=== PATIENT | female | born 1955 | race Caucasian/White ===

== ENCOUNTER 2018-05-02 06:54 | Day surgery (SDC) | payer MEDICARE ==
[2018-04-30 16:03] LABS: BASOPHILS % (AUTO) 0.4 % (0-1); EOSINOPHILS # (AUTO) 0.3 X10'3 (0-0.9); EOSINOPHILS % (AUTO) 3.3 % (0-6); LYMPHOCYTES # (AUTO) 2.6 X10'3 (1.1-4.8); LYMPHOCYTES % (AUTO) 30.4 % (21-51); MEAN CORPUSCULAR HEMOGLOBIN 29.7 PG (27.0-31.0); MEAN CORPUSCULAR HGB CONC 33.7 % (33.0-36.5); MEAN CORPUSCULAR VOLUME 88.2 FL (78-98); MEAN PLATELET VOLUME 9.1 FL (7.4-10.4); MONOCYTES # (AUTO) 0.7 X10'3 (0-0.9); MONOCYTES % (AUTO) 8.2 % (2-12); NEUTROPHILS # (AUTO) 4.9 X10'3 (1.8-7.7); NEUTROPHILS % (AUTO) 57.7 % (42-75); PRE OP HEMATOCRIT 43.1 % (35.0-45.0); PRE OP HEMOGLOBIN 14.5 g/dL (12.0-16.0); PRE OP PLATELET COUNT 251 X10'3 (140-440); RED BLOOD COUNT 4.88 X10'6 (4.20-5.60); RED CELL DISTRIBUTION WIDTH 14.8 % (11.5-14.5)
[2018-04-30 16:11] LABS: CLARITY,URINE SLIGHTLY CLOUDY (Clear); COLOR,URINE YELLOW (Yellow); GLUCOSE, URINE NEGATIVE (Neg); KETONES,URINE TRACE mg/dl (Neg); LEUKOCYTE ESTERASE ,URINE NEGATIVE (Neg); NITRITES, URINE NEGATIVE (Neg); OCCULT BLOOD,URINE NEGATIVE (Neg); PROTEIN,URINE >=300 mg/dl (Neg)
[2018-04-30 16:14] LABS: UA COLLECTION TYPE CLN CATCH MIDSTREAM
[2018-04-30 16:22] LABS: MUCUS STRANDS MANY /LPF (Neg); SQUAMOUS EPITHELIAL CELL,UR FEW /LPF (FEW); TRANSITIONAL EPI CELLS,URINE MODERATE /HPF
[2018-04-30 16:25] LABS: YEAST FEW /HPF (NEGATIVE)
[2018-04-30 16:26] LABS: RBC,URINE NONE SEEN /HPF (0-2)
[2018-04-30 16:27] LABS: ALBUMIN 2.8 G/DL (3.4-5.0); ALBUMIN/GLOBULIN RATIO 0.7 (1.1-1.5); ALKALINE PHOSPHATASE 76 IU/L (46-116); BLOOD UREA NITROGEN 14 MG/DL (7-18); BUN/CREATININE RATIO 17.7 (6.6-38.0); CALCIUM 8.8 MG/DL (8.5-10.1); CHLORIDE 102 MMOL/L (99-107); CREATININE 0.79 MG/DL (0.40-0.90); PRE OP ALT 20 U/L (30-65); PRE OP ANION GAP 12 (8-16); PRE OP AST 23 U/L (10-37); PRE OP BILIRUB, TOTAL 0.2 MG/DL (0.0-1.0); PRE OP GLUCOSE 84 MG/DL (70-104); PRE OP POTASSIUM 3.9 MMOL/L (3.4-5.1); PRE OP SODIUM 139 MMOL/L (135-145); TOTAL PROTEIN 6.8 G/DL (6.4-8.2); eGFR 73 ML/MIN
[2018-04-30 16:27] LABS: BACTERIA,URINE NONE SEEN /HPF (Neg); CAL OXALATE CRYSTALS 2+ /HPF (NEGATIVE)
[~2018-05-02] VITALS: Ht 157.5 cm; Wt 50.6 kg
[2018-05-02] VITALS (10 sets, daily range): BP systolic 131–198; BP diastolic 49–105
[~2018-05-02 06:54] MED LIST: ALPR-623 PO; ASPI-611 PO; ATOR40TA PO; CARV25TA56 PO; CHOL10002 PO; CLOP75TA15 PO; DOCUMENT DATE & TIME OF BETA-BLOCKER PO ONE; ESCI20TA38 PO; GABA600T2 PO; GEMF600T3 PO; LEVO112T25 PO; MAGN500C16 PO; METF1000 PO; MULT-342 PO; NITR0.4T SL; NOR5T PO; NPH,100V2 SQ; OMEG1CAP PO; TRAM50TA2 PO; VITAMIN B; albuterol 2.5 MG/3 ML nebule NEB ONE; ceFOXitin 2 GM ADDvantage bag 100 ML IV ONE; famotidine 20mg tablet PO ONE; ringers solution, lacted 1,000 ML IV SCH
[2018-05-02] MEDS ORDERED: ringers solution, lacted 1,000 ML IV SCH (07:37)
[2018-05-02] MEDS ORDERED: ondansetron/PF 4mg/2ml inj IV PRN (07:40)
[2018-05-02] MEDS ORDERED: morphine 4 MG/ML inj SYRINge IV PRN ×2 (07:40)
[2018-05-02] MEDS ORDERED: fentaNYL/PF 50MCG/1 ML 2ML syringe IV PRN (07:40)
[2018-05-02] MEDS ORDERED: meperidine/PF 25mg/ml syringe IV PRN (07:40)
[2018-05-02] MEDS ORDERED: proCHLORperazine 10 MG/2 ml inj IV PRN (07:40)
[2018-05-02] MEDS ORDERED: CLOP75TA15 PO (08:54)
[2018-05-02] MEDS ORDERED: ROPIVAcaine 0.5% (5mg/ml) 30ml vial ONE (09:32)
[2018-05-02] MEDS ORDERED: ceFAZolin 1000mg inj ONE (09:32)
[2018-05-02] MEDS ORDERED: fentaNYL/PF 50MCG/1 ML 2ML syringe ONE (10:59)
[2018-05-02] MEDS ORDERED: midazolam 2 mg/2 ml injection ONE (11:01)
[2018-05-02] MEDS ORDERED: LIDOcaine 2% 5ml jelly ONE (11:04)
[2018-05-02] MEDS ORDERED: LIDOcaine 2% (20mg/ml) 5ml vial ONE (11:15)
[2018-05-02] MEDS ORDERED: propofol inj 20 ML IV ONE (11:15)
[2018-05-02] MEDS ORDERED: rocuronium 10mg/ml inj IV ONE (11:15)
[2018-05-02] MEDS ORDERED: ondansetron/PF 4mg/2ml inj ONE (11:30)
[2018-05-02] MEDS ORDERED: dexamethasone sod phosphate 4mg/ml inj. ONE (11:30)
[2018-05-02] MEDS ORDERED: bacitracin 15gm ointment TP ONE (11:44)
[2018-05-02] MEDS ORDERED: hydrALAZINE 20mg/ml inj. IV PRN (12:10)
[2018-05-02] MEDS: fentaNYL/PF 50MCG/1 ML 2ML syringe IV PRN ×2 (12:31→12:36)
== END 2018-05-02 13:05 | disposition home or self-care (01) ==
LOC: PRE-OP 06:54 → PAS 13:05
PROVIDERS: ATTEND Surgery
DX: K80.10 Calculus of gallbladder with chronic cholecystitis without obstruction (principal); E11.51 Type 2 diabetes mellitus with diabetic peripheral angiopathy without gangrene; E03.9 Hypothyroidism, unspecified; J44.9 Chronic obstructive pulmonary disease, unspecified; I10 Essential (primary) hypertension; F17.210 Nicotine dependence, cigarettes, uncomplicated; F32.9 Major depressive disorder, single episode, unspecified; I25.10 Atherosclerotic heart disease of native coronary artery without angina pectoris; I25.2 Old myocardial infarction; F41.9 Anxiety disorder, unspecified; Z88.8 Allergy status to other drugs, medicaments and biological substances; Z79.01 Long term (current) use of anticoagulants; Z95.1 Presence of aortocoronary bypass graft; Z98.51 Tubal ligation status; Z79.82 Long term (current) use of aspirin; Z79.899 Other long term (current) drug therapy; Z82.49 Family history of ischemic heart disease and other diseases of the circulatory system; Z80.9 Family history of malignant neoplasm, unspecified
CPT/HCPCS: 36415; 47562; 80053; 81001; 82948; 85025; 85610; 85730; 87088; 93005; 94640; 94760; J0360; J0690; J0694; J1100; J2001; J2250; J2405; J2704; J2795; J3010; J7120; A7000

== ENCOUNTER 2018-05-05 22:46 | Emergency (ER) | payer MEDICARE ==
[~2018-05-05] VITALS: Ht 157.5 cm; Wt 52.0 kg
[~2018-05-05 22:46] MED LIST changes: -DOCUMENT DATE & TIME OF BETA-BLOCKER PO ONE; -albuterol 2.5 MG/3 ML nebule NEB ONE; -ceFOXitin 2 GM ADDvantage bag 100 ML IV ONE; -famotidine 20mg tablet PO ONE; -ringers solution, lacted 1,000 ML IV SCH
[2018-05-05] MEDS ORDERED: ondansetron/PF 4mg/2ml inj IV ONE (23:20)
[2018-05-05] MEDS ORDERED: normal saline 1000ML IV soln IVB ONE (23:20)
[2018-05-06 00:07] LABS: BASOPHILS % (AUTO) 0.3 % (0-1); EOSINOPHILS # (AUTO) 0.7 X10'3 (0-0.9); EOSINOPHILS % (AUTO) 5.2 % (0-6); HEMATOCRIT 42.3 % (35.0-45.0); HEMOGLOBIN 14.4 g/dl (12.0-16.0); LYMPHOCYTES # (AUTO) 1.5 X10'3 (1.1-4.8); LYMPHOCYTES % (AUTO) 12.2 % (21-51); MEAN CORPUSCULAR VOLUME 88.2 FL (78-98); MEAN PLATELET VOLUME 9.1 FL (7.4-10.4); MONOCYTES # (AUTO) 0.7 X10'3 (0-0.9); MONOCYTES % (AUTO) 5.5 % (2-12); NEUTROPHILS # (AUTO) 9.6 X10'3 (1.8-7.7); NEUTROPHILS % (AUTO) 76.8 % (42-75); PLATELET COUNT 235 X10'3 (140-440); RED CELL DISTRIBUTION WIDTH 14.4 % (11.5-14.5); WHITE BLOOD COUNT 12.6 X10'3 (4.5-11.0)
[2018-05-06 00:20] LABS: ALANINE AMINOTRANSFERASE 33 U/L (12-78); ALBUMIN 2.5 G/DL (3.4-5.0); ALBUMIN/GLOBULIN RATIO 0.7 (1.1-1.5); ALKALINE PHOSPHATASE 78 IU/L (46-116); ANION GAP 13 (8-16); ASPARTATE AMINO TRANSFERASE 27 U/L (10-37); BILIRUBIN,TOTAL 0.3 MG/DL (0.1-1.0); BLOOD UREA NITROGEN 14 MG/DL (7-18); BUN/CREATININE RATIO 16.3 (6.6-38.0); CALCIUM 9.2 MG/DL (8.5-10.1); CHLORIDE 101 MMOL/L (99-107); CREATININE 0.86 MG/DL (0.40-0.90); GLUCOSE 53 MG/DL (70-104); LIPASE 83 U/L (73-393); POTASSIUM 3.4 MMOL/L (3.5-5.1); SODIUM 137 MMOL/L (135-145); TOTAL CARBON DIOXIDE 22.8 MMOL/L (24-32); TOTAL PROTEIN 6.3 G/DL (6.4-8.2); eGFR 66 ML/MIN
[2018-05-06 00:59] LABS: CLARITY,URINE CLEAR (Clear); COLOR,URINE YELLOW (Yellow); GLUCOSE, URINE NEGATIVE (Neg); KETONES,URINE NEGATIVE (Neg); LEUKOCYTE ESTERASE ,URINE NEGATIVE (Neg); NITRITES, URINE NEGATIVE (Neg); OCCULT BLOOD,URINE NEGATIVE (Neg); PH,URINE 5.5 (4.8-8.0); PROTEIN,URINE >=300 mg/dl (Neg); UA COLLECTION TYPE CLN CATCH MIDSTREAM; UROBILINOGEN,URINE 0.2 E.U/dL (0.2-1.0)
[2018-05-06 01:10] LABS: HYALINE CASTS 0-3 /LPF (NEGATIVE)
[2018-05-06 01:12] LABS: BACTERIA,URINE FEW /HPF (Neg); MUCUS STRANDS FEW /LPF (Neg); RBC,URINE 0-2 /HPF (0-2); SQUAMOUS EPITHELIAL CELL,UR FEW /LPF (FEW)
[2018-05-06] MEDS ORDERED: ONDA8TAB6 PO (01:19)
[2018-05-06] MEDS ORDERED: nitrofuran/nitrofuran macrocrysal 100 MG capsule PO ONE (01:20)
[2018-05-06] MEDS ORDERED: NITR100C6 PO (01:21)
[2018-05-06] MEDS ORDERED: FLUC150T66 PO (01:24)
[2018-05-06 01:43] VITALS: BP 119/57
== END 2018-05-06 01:45 | disposition home or self-care (01) ==
LOC: ER 22:46
DX: R11.2 Nausea with vomiting, unspecified (principal); N39.0 Urinary tract infection, site not specified; E11.42 Type 2 diabetes mellitus with diabetic polyneuropathy; Z79.4 Long term (current) use of insulin; Z90.49 Acquired absence of other specified parts of digestive tract; Z79.82 Long term (current) use of aspirin; Z79.899 Other long term (current) drug therapy; Z88.5 Allergy status to narcotic agent
CPT/HCPCS: 36415; 74176; 80053; 81001; 83690; 85025; 87088; 96361; 96374; 99285; J2405; J7030

== ENCOUNTER 2019-09-16 13:10 | Day surgery (SDC) | payer MEDICARE ==
[~2019-09-16] VITALS: Ht 157.5 cm; Wt 44.0 kg
[~2019-09-16 13:10] MED LIST changes: +GABA600T13 PO; -GABA600T2 PO; -GEMF600T3 PO; +GEMF600T5 PO; +NITR100C6 PO; +ONDA8TAB6 PO
[2019-09-16] MEDS ORDERED: normal saline 1,000 ML IV SCH (13:30)
[2019-09-16] MEDS ORDERED: diphenhydrAMINE 25mg capsule PO PRN (13:30)
[2019-09-16] MEDS ORDERED: LORazepam 0.5 MG tablet PO PRN (13:30)
[2019-09-16 14:13] LABS: ALBUMIN 3.2 G/DL (3.4-5.0); ANION GAP 9 (8-16); BLOOD UREA NITROGEN 29 MG/DL (7-18); BUN/CREATININE RATIO 14.1 (6.6-38.0); CALCIUM 9.4 MG/DL (8.5-10.1); CHLORIDE 101 MMOL/L (99-107); CREATININE 2.05 MG/DL (0.40-0.90); GLUCOSE 117 MG/DL (70-104); SODIUM 136 MMOL/L (135-145); TOTAL CARBON DIOXIDE 26.5 MMOL/L (24-32); eGFR 24 ML/MIN
[2019-09-16 14:30] VITALS: BP 174/93
[2019-09-16] MEDS ORDERED: ALBU6.7H9 INH (15:56)
[2019-09-16] MEDS ORDERED: MULT-955 PO (15:56)
[2019-09-16] MEDS ORDERED: ASCO-261 PO (15:56)
[2019-09-16] MEDS ORDERED: ALPR-623 PO (15:56)
[2019-09-16] MEDS ORDERED: FURO40TA4 PO (15:56)
[2019-09-16] MEDS ORDERED: OMEG-79 PO (15:56)
[2019-09-16] MEDS ORDERED: ADV50100 INH (15:56)
[2019-09-16] MEDS ORDERED: FERR324T4 PO (15:56)
[2019-09-16] MEDS ORDERED: METO25TA6 PO (15:56)
[2019-09-16] MEDS ORDERED: iohexol 350MG/ML 100ml bottle IV ONE (16:48)
[2019-09-16] MEDS ORDERED: LIDOcaine 1% W/epiNEPHrine 1:100,000 20ml vial ONE (16:48)
[2019-09-16] MEDS ORDERED: fentaNYL/PF 50MCG/1 ML 2ML syringe ONE (17:28)
[2019-09-16] MEDS ORDERED: midazolam 2 mg/2 ml injection ONE (17:28)
[2019-09-16] MEDS ORDERED: iohexol 350 MG/ML 50ML vial IV ONE (18:13)
[2019-09-16 18:33] VITALS: BP 118/75
[2019-09-16 18:45] VITALS: BP 115/68
[2019-09-16] MEDS ORDERED: acetaminophen 325mg tablet PO PRN (19:10)
[2019-09-16] MEDS ORDERED: HYDROcodone/acetaminophen 5mg/325mg tablet PO PRN (19:10)
[2019-09-16] MEDS ORDERED: OXAZEpam 15mg capsule PO PRN (19:10)
[2019-09-16] MEDS ORDERED: HYDROcodone/acetaminophen 10/325mg tab PO PRN (19:10)
[2019-09-16] MEDS ORDERED: ondansetron/PF 4mg/2ml inj IV PRN (19:10)
[2019-09-16] MEDS ORDERED: proCHLORperazine 10 MG/2 ml inj IV PRN (19:10)
[2019-09-16 19:15] VITALS: BP 120/58
[2019-09-16 19:30] VITALS: BP 125/52
[2019-09-16 20:00] VITALS: BP 147/91
== END 2019-09-16 20:45 | disposition home or self-care (01) ==
LOC: SSTAY O 13:10
PROVIDERS: ATTEND Internal Medicine Interventional Cardiology
DX: R94.39 Abnormal result of other cardiovascular function study (principal); I25.10 Atherosclerotic heart disease of native coronary artery without angina pectoris; E11.9 Type 2 diabetes mellitus without complications; G35 Multiple sclerosis; E78.5 Hyperlipidemia, unspecified; I11.0 Hypertensive heart disease with heart failure; I50.9 Heart failure, unspecified; E03.9 Hypothyroidism, unspecified; Z79.899 Other long term (current) drug therapy; Z79.84 Long term (current) use of oral hypoglycemic drugs; Z79.01 Long term (current) use of anticoagulants; Z88.8 Allergy status to other drugs, medicaments and biological substances; Z88.5 Allergy status to narcotic agent; Z87.891 Personal history of nicotine dependence
CPT/HCPCS: 36415; 80048; 93005; 93455; 93567; 99152; 99153; C1769; J1644; J2250; J3010; J7030; Q0163; Q9967; A4620

== ENCOUNTER 2019-10-04 17:59 | Inpatient (IN) | payer MEDICARE ==
[~2019-10-04] VITALS: Ht 157.5 cm; Wt 44.1 kg
[~2019-10-04 17:59] MED LIST changes: +ADV50100 INH; +ALBU6.7H9 INH; +ASCO-261 PO; -CARV25TA56 PO; +FERR324T4 PO; +FURO40TA4 PO; -GABA600T13 PO; -GEMF600T5 PO; -MAGN500C16 PO; +METO25TA6 PO; -MULT-342 PO; +MULT-955 PO; -NITR100C6 PO; -NPH,100V2 SQ; +OMEG-79 PO; -OMEG1CAP PO; -ONDA8TAB6 PO
[2019-10-04] MEDS ORDERED: ipratropium/albuterol 3ml nebule NEB ONE ×2 (19:35→21:55)
[2019-10-04 19:39] LABS: BASOPHILS % (AUTO) 0.2 % (0-1); EOSINOPHILS # (AUTO) 0.1 X10'3 (0-0.9); EOSINOPHILS % (AUTO) 1.1 % (0-6); HEMATOCRIT 24.8 % (35.0-45.0); HEMOGLOBIN 8.2 g/dl (12.0-16.0); LYMPHOCYTES # (AUTO) 1.2 X10'3 (1.1-4.8); LYMPHOCYTES % (AUTO) 10.7 % (21-51); MEAN CORPUSCULAR HEMOGLOBIN 27.5 PG (27.0-31.0); MEAN CORPUSCULAR HGB CONC 33.2 g/dL (33.0-36.5); MEAN CORPUSCULAR VOLUME 82.8 FL (78-98); MEAN PLATELET VOLUME 8.2 FL (7.4-10.4); MONOCYTES # (AUTO) 0.8 X10'3 (0-0.9); MONOCYTES % (AUTO) 7.1 % (2-12); NEUTROPHILS # (AUTO) 9.1 X10'3 (1.8-7.7); NEUTROPHILS % (AUTO) 80.9 % (42-75); PLATELET COUNT 355 X10'3 (140-440); RED BLOOD COUNT 2.99 X10'6 (4.20-5.60); WHITE BLOOD COUNT 11.3 X10'3 (4.5-11.0)
[2019-10-04 19:51] LABS: ALANINE AMINOTRANSFERASE 14 U/L (12-78); ALBUMIN 1.8 G/DL (3.4-5.0); ALBUMIN/GLOBULIN RATIO 0.4 (1.1-1.5); ALKALINE PHOSPHATASE 65 IU/L (46-116); ANION GAP 12 (8-16); ASPARTATE AMINO TRANSFERASE 19 U/L (10-37); BILIRUBIN,TOTAL 0.3 MG/DL (0.1-1.0); BLOOD UREA NITROGEN 37 MG/DL (7-18); BUN/CREATININE RATIO 13.5 (6.6-38.0); CALCIUM 8.9 MG/DL (8.5-10.1); CHLORIDE 104 MMOL/L (99-107); CREATININE 2.74 MG/DL (0.40-0.90); GLUCOSE 209 MG/DL (70-104); SODIUM 135 MMOL/L (135-145); TOTAL CARBON DIOXIDE 19.2 MMOL/L (24-32); TOTAL PROTEIN 6.3 G/DL (6.4-8.2); eGFR 17 ML/MIN
[2019-10-04 20:00] LABS: MAGNESIUM 2.1 MG/DL (1.5-2.4)
[2019-10-04] MEDS ORDERED: furosemide 20MG tablet PO ONE (21:45)
[2019-10-04] MEDS ORDERED: METO-292 PO (22:23)
[2019-10-04] MEDS ORDERED: ALEN70TA60 PO (22:27)
[2019-10-04] MEDS ORDERED: CARV-50 PO (22:27)
[2019-10-04] MEDS ORDERED: methylPREDNISolone sod succ 125mg/2ml vial IV ONE (22:40)
[2019-10-05] MEDS ORDERED: magnesium 4gm in 100ml NS 100 ML IV PRN (00:40)
[2019-10-05] MEDS ORDERED: magnesium 2GM in 50ml NS 50 ML IV PRN (00:40)
[2019-10-05] MEDS ORDERED: potassium Cl 20 mEq SR tablet PO PRN (00:40)
[2019-10-05] MEDS ORDERED: potassium CL 10mEq/100ml bag 100 ML IV PRN ×2 (00:40)
[2019-10-05] MEDS ORDERED: ondansetron/PF 4mg/2ml inj IV PRN (00:40)
[2019-10-05] MEDS ORDERED: ipratropium/albuterol 3ml nebule NEB PRN (00:40)
[2019-10-05] MEDS ORDERED: magnesium Cl slow-release 64mg tablet PO PRN (00:40)
[2019-10-05] MEDS ORDERED: pantoprazole 40 MG vial IV ONE (01:25)
[2019-10-05 03:00] VITALS: BP 178/78
--- NOTE | 2019-10-05 03:00 | NUR ---
Patient in room ED 4. I have received report from Sotero STALEY RN and had the opportunity to ask questions and assume patient care.
--- NOTE | 2019-10-05 03:20 | NUR ---
Pt arrived fr/ED in no acute distress via gurney. Assisted in amb to bed. Tolerated well. VS taken, noted BP: 178/78. Other VS stable. O2 on per NC at 2L. Lung sounds diminished to bases. Minimal exertional SOB noted. To contact Dr. Padilla now.
[2019-10-05] MEDS ORDERED: hydrALAZINE 20mg/ml inj. IV PRN (05:00)
--- NOTE | 2019-10-05 05:00 | NUR ---
Dr. Padilla called, orders obtained.
--- NOTE | 2019-10-05 06:20 | NUR ---
Problems reprioritized. Patient report given, questions answered & plan of care reviewed with Amber DIALLO.
--- NOTE | 2019-10-05 06:25 | NUR ---
Patient in room PCU 3023. I have received report from YOEL HONG and had the opportunity to ask questions and assume patient care.
[2019-10-05 07:01] VITALS: BP 146/83
[2019-10-05] MEDS: methylPREDNISolone sod succ/PF 40mg inj. IV SCH ×2 (07:50→21:18)
[2019-10-05] MEDS: acetaminophen 325mg tablet PO PRN ×2 (07:51→23:14)
[2019-10-05] MEDS ORDERED: furosemide 40mg tablet PO SCH (08:00)
[2019-10-05] MEDS: heparin, porcine 5000 units/ml vial SQ SCH ×2 (08:00→21:22)
[2019-10-05] MEDS ORDERED: levoFLOXACIN-Levaquin 500mg/D5 100 ML IV SCH (08:00)
[2019-10-05] MEDS: clopidogrel 75mg tablet PO SCH (08:00)
[2019-10-05] MEDS ORDERED: non-formulary drug (Alendronate Sodium* (Fosamax*) 1 TABLET) PO SCH (08:00)
[2019-10-05] MEDS: aspirin 81mg tablet.DR PO SCH (08:00)
[2019-10-05] MEDS: K and/or MAG REPLACEMENT MC SCH (08:00)
[2019-10-05] MEDS ORDERED: metoclopramide 10mg tablet PO SCH (08:00)
[2019-10-05] MEDS: ipratropium/albuterol 3ml nebule NEB PRN ×2 (08:02→11:32)
[2019-10-05] MEDS ORDERED: dextrose 50%-water 50ml dispensing syringe IV PRN ×2 (08:10)
[2019-10-05] MEDS ORDERED: dextrose ORAL solution 15 GM/59 ML bottle PO PRN ×2 (08:10)
[2019-10-05] MEDS ORDERED: glucagon, human recombinant 1mg kit SUBCUT PRN (08:10)
[2019-10-05] MEDS ORDERED: MESSAGE TO PHARMACY PO ONE (08:10)
[2019-10-05 08:12] LABS: TROPONIN I 0.04 NG/ML (0.0-0.05)
[2019-10-05] MEDS: ESCITALOPRAM OXALATE 5 MG TABLET PO SCH (08:57)
[2019-10-05] MEDS: amLODIPine 5mg tablet PO SCH (08:57)
[2019-10-05] MEDS: multivitamins, therapeutics tablet PO SCH (08:58)
[2019-10-05] MEDS: levoTHYROXINE 100mcg tablet PO SCH (08:58)
[2019-10-05] MEDS: furosemide 40mg/4ml inj IV SCH (08:58)
[2019-10-05] MEDS: carVEDilol 12.5mg tablet PO SCH ×2 (08:58→21:21)
[2019-10-05 09:03] LABS: HEMOGLOBIN A1C 6.8 % (4.5-6.2)
[2019-10-05 11:00] VITALS: BP 127/74
--- NOTE | 2019-10-05 11:00 | NUR ---
PER DR GEETA JAUREGUI THAT PATIENT'S ASA, PLAVIX AND HEPARIN TO BE HELD AT THIS TIME.
[2019-10-05] MEDS: traMADol 50MG tablet PO PRN (11:05)
--- NOTE | 2019-10-05 11:20 | NUR ---
Pt with low BMI of 17.8 however current documented wt is patient stated. Per records pt weighed 52 kg 05/05/18 and 44 kg 09/16/19, both scaled weights. This is non-significant wt loss of 15% in 16 months. Pt currently on heart healthy CHO controlled diet documented with 75% PO intake meeting nutrient needs. No decrease in muscle strength and no edema. Pt denied wt loss or decreased appetite during malnutrition risk screening with RN. No concerns for malnutrition at this time. Will continue to follow. Addendum: 10/05/19 at [address] Amended: Links added.
--- NOTE | 2019-10-05 11:50 | NUR ---
Pt off unit for x-ray via wheelchair with portable oxygen in stable condition.
--- NOTE | 2019-10-05 12:22 | NUR ---
patient returned back to room 3023B. visitor at bedside.
[2019-10-05] MEDS: sodium ferric gluc complex inj 125 MG in normal saline 100ml IV soln 100 ML IV SCH (12:25)
[2019-10-05 12:26] LABS: % IRON SATURATION 9 % (11-46); IRON 21 UG/DL (49-151); TOTAL IRON BINDING CAPACITY 233 UG/DL (259-388)
[2019-10-05 12:38] LABS: FERRITIN 87 NG/ML (8-252); TROPONIN I < 0.04 NG/ML (0.0-0.05)
[2019-10-05] MEDS: insulin Lispro (HumaLOG) vial - multi-dose SQ SCH ×2 (13:37→19:19)
[2019-10-05] MEDS: ipratropium/albuterol 3ml nebule NEB SCH ×3 (15:52→23:10)
[2019-10-05 16:41] VITALS: BP 117/68
[2019-10-05 18:00] VITALS: BP 111/65
--- NOTE | 2019-10-05 18:25 | NUR ---
Problems reprioritized. Patient report given, questions answered & plan of care reviewed with YOEL Perez.
--- NOTE | 2019-10-05 18:41 | NUR ---
Patient in room PCU 3023. I have received report from Amber DIALLO and had the opportunity to ask questions and assume patient care.
[2019-10-05] MEDS: atorvastatin 20mg tablet PO SCH (21:23)
[2019-10-05] MEDS: famotidine 20mg tablet PO SCH (21:23)
[2019-10-05] MEDS: ALPRAZolam 0.25mg tablet PO SCH (21:23)
[2019-10-05 22:00] VITALS: BP 121/79
[2019-10-05] MEDS: insulin glargine (Lantus) pen - multi-dose SQ SCH (22:31)
[2019-10-06 02:00] VITALS: BP 131/78
[2019-10-06 06:00] VITALS: BP 133/79
--- NOTE | 2019-10-06 06:36 | NUR ---
Problems reprioritized. Patient report given, questions answered & plan of care reviewed with Treva DIALLO.
--- NOTE | 2019-10-06 06:41 | NUR ---
Patient in room PCU 3023. I have received report from Katherine DIALLO and had the opportunity to ask questions and assume patient care.
[2019-10-06 06:45] LABS: BASOPHILS % (AUTO) 0.2 % (0-1); EOSINOPHILS % (AUTO) 0 % (0-6); HEMATOCRIT 25.3 % (35.0-45.0); HEMOGLOBIN 8.4 g/dl (12.0-16.0); LYMPHOCYTES # (AUTO) 0.9 X10'3 (1.1-4.8); LYMPHOCYTES % (AUTO) 6.9 % (21-51); MEAN CORPUSCULAR HEMOGLOBIN 27.6 PG (27.0-31.0); MEAN CORPUSCULAR HGB CONC 33.2 g/dL (33.0-36.5); MEAN CORPUSCULAR VOLUME 83.1 FL (78-98); MEAN PLATELET VOLUME 8.5 FL (7.4-10.4); MONOCYTES # (AUTO) 0.3 X10'3 (0-0.9); MONOCYTES % (AUTO) 2.1 % (2-12); NEUTROPHILS # (AUTO) 11.4 X10'3 (1.8-7.7); NEUTROPHILS % (AUTO) 90.8 % (42-75); PLATELET COUNT 411 X10'3 (140-440); RED BLOOD COUNT 3.05 X10'6 (4.20-5.60); RED CELL DISTRIBUTION WIDTH 17.4 % (11.5-14.5); WHITE BLOOD COUNT 12.5 X10'3 (4.5-11.0)
[2019-10-06 06:48] LABS: ANION GAP 17 (8-16); BLOOD UREA NITROGEN 53 MG/DL (7-18); BUN/CREATININE RATIO 17.8 (6.6-38.0); CALCIUM 8.6 MG/DL (8.5-10.1); CHLORIDE 103 MMOL/L (99-107); CREATININE 2.97 MG/DL (0.40-0.90); GLUCOSE 208 MG/DL (70-104); POTASSIUM 4.1 MMOL/L (3.5-5.1); SODIUM 138 MMOL/L (135-145); TOTAL CARBON DIOXIDE 18.3 MMOL/L (24-32); eGFR 16 ML/MIN
[2019-10-06] MEDS: ipratropium/albuterol 3ml nebule NEB SCH ×5 (07:16→23:00)
[2019-10-06] MEDS: multivitamins, therapeutics tablet PO SCH (07:50)
[2019-10-06] MEDS: carVEDilol 12.5mg tablet PO SCH ×2 (07:50→20:09)
[2019-10-06] MEDS: heparin, porcine 5000 units/ml vial SQ SCH ×2 (07:50→20:10)
[2019-10-06] MEDS: levoTHYROXINE 100mcg tablet PO SCH (07:50)
[2019-10-06] MEDS: aspirin 81mg tablet.DR PO SCH (07:50)
[2019-10-06] MEDS: clopidogrel 75mg tablet PO SCH (07:50)
[2019-10-06] MEDS: furosemide 40mg/4ml inj IV SCH ×3 (07:51→20:10)
[2019-10-06] MEDS: amLODIPine 5mg tablet PO SCH (07:51)
[2019-10-06] MEDS: methylPREDNISolone sod succ/PF 40mg inj. IV SCH ×2 (07:51→20:10)
[2019-10-06] MEDS: ESCITALOPRAM OXALATE 5 MG TABLET PO SCH (07:51)
[2019-10-06] MEDS: levoFLOXACIN-Levaquin 250mg/D5 50 ML IV SCH (07:52)
[2019-10-06] MEDS: K and/or MAG REPLACEMENT MC SCH (08:00)
[2019-10-06] MEDS: insulin Lispro (HumaLOG) vial - multi-dose SQ SCH ×3 (09:08→19:35)
--- NOTE | 2019-10-06 09:34 | NUR ---
MICRO VALUE TAKEN POSITIVE MRSA NASAL SWAB, REPORTED TO PRIMARY RN.
--- NOTE | 2019-10-06 09:38 | NUR ---
Page Dr. Ni PAGER ID: [phone] MESSAGE: Room 3023B Verito Hermosillo: Patient's nasal MRSA swab came back positive. Thank you, Treva ext [phone].
[2019-10-06] MEDS: sodium ferric gluc complex inj 125 MG in normal saline 100ml IV soln 100 ML IV SCH (10:06)
--- NOTE | 2019-10-06 11:25 | NUR ---
DM consult: Patient's A1c is 6.8; no DM education warranted at this time. Will continue to follow. Addendum: 10/06/19 at [address] Amended: Links added.
--- NOTE | 2019-10-06 11:35 | NUR ---
Page Dr. Ni PAGER ID: [phone] MESSAGE: Room 3023B Verito Hermosillo: Lasix 40 mg IV was given to patient this morning for 0800. Do you want another dose given now, or will 2000 administration be ok for the new BID order? Thank you Treva, ext [phone].
[2019-10-06] MEDS: acetaminophen 325mg tablet PO PRN ×2 (11:42→19:44)
--- NOTE | 2019-10-06 13:40 | NUR ---
Page Dr. 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 She stated that she breaks out in boils to lower extremities, but only when consistently eaten. Thanks, Treva ext [phone]
[2019-10-06 15:00] VITALS: BP 129/74
[2019-10-06 18:00] VITALS: BP 139/79
--- NOTE | 2019-10-06 18:20 | NUR ---
Problems reprioritized. Patient report given, questions answered & plan of care reviewed with Misty DIALLO. Patient stable at time of transfer of care.
--- NOTE | 2019-10-06 18:32 | NUR ---
Patient in room PCU 3023. I have received report from Treva DIALLO and had the opportunity to ask questions and assume patient care.
[2019-10-06] MEDS: atorvastatin 20mg tablet PO SCH (20:09)
[2019-10-06] MEDS: lactobacillus rhamnosus 10,000 MMU CELLS/CAPSULE PO SCH (20:09)
[2019-10-06] MEDS: famotidine 20mg tablet PO SCH (20:09)
[2019-10-06] MEDS: ALPRAZolam 0.25mg tablet PO SCH (20:09)
[2019-10-06] MEDS: insulin glargine (Lantus) pen - multi-dose SQ SCH (21:54)
[2019-10-06 22:00] VITALS: BP 145/85
[2019-10-07 02:00] VITALS: BP 150/82
[2019-10-07 05:25] LABS: BASOPHILS % (AUTO) 0.1 % (0-1); EOSINOPHILS % (AUTO) 0 % (0-6); HEMATOCRIT 23.6 % (35.0-45.0); HEMOGLOBIN 7.8 g/dl (12.0-16.0); LYMPHOCYTES # (AUTO) 0.6 X10'3 (1.1-4.8); LYMPHOCYTES % (AUTO) 5.2 % (21-51); MEAN CORPUSCULAR HEMOGLOBIN 27.5 PG (27.0-31.0); MEAN CORPUSCULAR VOLUME 83.2 FL (78-98); MEAN PLATELET VOLUME 8.2 FL (7.4-10.4); MONOCYTES # (AUTO) 0.4 X10'3 (0-0.9); MONOCYTES % (AUTO) 3.1 % (2-12); NEUTROPHILS # (AUTO) 10.6 X10'3 (1.8-7.7); NEUTROPHILS % (AUTO) 91.6 % (42-75); PLATELET COUNT 341 X10'3 (140-440); RED BLOOD COUNT 2.83 X10'6 (4.20-5.60); RED CELL DISTRIBUTION WIDTH 17.7 % (11.5-14.5); WHITE BLOOD COUNT 11.6 X10'3 (4.5-11.0)
[2019-10-07 05:59] LABS: ANION GAP 17 (8-16); BLOOD UREA NITROGEN 60 MG/DL (7-18); BUN/CREATININE RATIO 17.5 (6.6-38.0); CALCIUM 8.3 MG/DL (8.5-10.1); CHLORIDE 105 MMOL/L (99-107); CREATININE 3.42 MG/DL (0.40-0.90); GLUCOSE 186 MG/DL (70-104); MAGNESIUM 2.1 MG/DL (1.5-2.4); POTASSIUM 3.4 MMOL/L (3.5-5.1); SODIUM 139 MMOL/L (135-145); eGFR 13 ML/MIN
--- NOTE | 2019-10-07 06:10 | NUR ---
Patient in room PCU 3023. I have received report from YOEL Jay and had the opportunity to ask questions and assume patient care.
--- NOTE | 2019-10-07 06:29 | NUR ---
Problems reprioritized. Patient report given, questions answered & plan of care reviewed with Kavitha DIALLO.
[2019-10-07 07:00] VITALS: BP 142/80
[2019-10-07] MEDS: ipratropium/albuterol 3ml nebule NEB SCH ×4 (07:05→21:17)
[2019-10-07] MEDS: methylPREDNISolone sod succ/PF 40mg inj. IV SCH ×2 (07:42→20:29)
[2019-10-07] MEDS: furosemide 40mg/4ml inj IV SCH (07:42)
[2019-10-07] MEDS: multivitamins, therapeutics tablet PO SCH (07:43)
[2019-10-07] MEDS: lactobacillus rhamnosus 10,000 MMU CELLS/CAPSULE PO SCH ×2 (07:43→20:30)
[2019-10-07] MEDS: clopidogrel 75mg tablet PO SCH (07:43)
[2019-10-07] MEDS: heparin, porcine 5000 units/ml vial SQ SCH ×2 (07:43→20:30)
[2019-10-07] MEDS: levoTHYROXINE 100mcg tablet PO SCH (07:43)
[2019-10-07] MEDS: ESCITALOPRAM OXALATE 5 MG TABLET PO SCH (07:44)
[2019-10-07] MEDS: carVEDilol 12.5mg tablet PO SCH ×2 (07:44→20:30)
[2019-10-07] MEDS: aspirin 81mg tablet.DR PO SCH (07:44)
[2019-10-07] MEDS: amLODIPine 5mg tablet PO SCH (07:44)
[2019-10-07] MEDS: levoFLOXACIN-Levaquin 250mg/D5 50 ML IV SCH (07:45)
[2019-10-07] MEDS: potassium Cl 20 mEq SR tablet PO PRN ×3 (07:45→20:30)
[2019-10-07] MEDS: K and/or MAG REPLACEMENT MC SCH (07:46)
[2019-10-07] MEDS: sodium ferric gluc complex inj 125 MG in normal saline 100ml IV soln 100 ML IV SCH (07:46)
[2019-10-07] MEDS: insulin Lispro (HumaLOG) vial - multi-dose SQ SCH ×3 (09:36→18:49)
[2019-10-07] MEDS ORDERED: magnesium hydroxide 30ml (MOM) UD suspension PO SCH (10:05)
[2019-10-07 11:00] VITALS: BP 135/77
--- NOTE | 2019-10-07 17:56 | NUR ---
Paged Dr. Henderson regarding pain medication. PAGER ID: [phone] MESSAGE: re [phone] Verito Hermosillo: Pt c/o mild pain and is requesting Tylenol 650mg. Can this be ordered. Thanks, Kavitha [phone]
[2019-10-07 18:00] VITALS: BP 148/83
[2019-10-07] MEDS: acetaminophen 325mg tablet PO PRN ×2 (18:02→23:23)
--- NOTE | 2019-10-07 18:38 | NUR ---
Problems reprioritized. Patient report given, questions answered & plan of care reviewed with YOEL Jay.
[2019-10-07] MEDS: docusate sod 100mg capsule PO SCH (20:00)
[2019-10-07] MEDS: ALPRAZolam 0.25mg tablet PO SCH (20:30)
[2019-10-07] MEDS: famotidine 20mg tablet PO SCH (20:30)
[2019-10-07] MEDS: atorvastatin 20mg tablet PO SCH (20:30)
[2019-10-07 22:00] VITALS: BP 141/88
[2019-10-07] MEDS: insulin glargine (Lantus) pen - multi-dose SQ SCH (22:07)
[2019-10-08] MEDS: ipratropium/albuterol 3ml nebule NEB SCH ×6 (00:06→23:00)
[2019-10-08 02:00] VITALS: BP 155/82
[2019-10-08 05:03] LABS: BASOPHILS % (AUTO) 0.1 % (0-1); EOSINOPHILS % (AUTO) 0.1 % (0-6); HEMATOCRIT 26.4 % (35.0-45.0); HEMOGLOBIN 8.9 g/dl (12.0-16.0); LYMPHOCYTES % (AUTO) 6.3 % (21-51); MEAN CORPUSCULAR HEMOGLOBIN 27.8 PG (27.0-31.0); MEAN CORPUSCULAR HGB CONC 33.6 g/dL (33.0-36.5); MEAN CORPUSCULAR VOLUME 82.6 FL (78-98); MEAN PLATELET VOLUME 8.4 FL (7.4-10.4); MONOCYTES # (AUTO) 0.4 X10'3 (0-0.9); MONOCYTES % (AUTO) 2.5 % (2-12); PLATELET COUNT 456 X10'3 (140-440); RED CELL DISTRIBUTION WIDTH 17.6 % (11.5-14.5); WHITE BLOOD COUNT 15.4 X10'3 (4.5-11.0)
[2019-10-08] MEDS: acetaminophen 325mg tablet PO PRN ×2 (05:24→17:08)
[2019-10-08 05:26] LABS: ALBUMIN 2.2 G/DL (3.4-5.0); ANION GAP 14 (8-16); BLOOD UREA NITROGEN 75 MG/DL (7-18); BUN/CREATININE RATIO 24.8 (6.6-38.0); CALCIUM 8.1 MG/DL (8.5-10.1); CHLORIDE 104 MMOL/L (99-107); CREATININE 3.03 MG/DL (0.40-0.90); GLUCOSE 217 MG/DL (70-104); MAGNESIUM 2.3 MG/DL (1.5-2.4); POTASSIUM 4.3 MMOL/L (3.5-5.1); SODIUM 137 MMOL/L (135-145); TOTAL CARBON DIOXIDE 19.2 MMOL/L (24-32); eGFR 15 ML/MIN
--- NOTE | 2019-10-08 06:33 | NUR ---
Patient in room PCU 3023. I have received report from YOEL Jay and had the opportunity to ask questions and assume patient care.
--- NOTE | 2019-10-08 06:35 | NUR ---
Problems reprioritized. Patient report given, questions answered & plan of care reviewed with Kavitha DIALLO.
[2019-10-08 07:00] VITALS: BP 154/89
[2019-10-08] MEDS: K and/or MAG REPLACEMENT MC SCH (08:00)
[2019-10-08] MEDS: docusate sod 100mg capsule PO SCH ×2 (08:00→20:19)
[2019-10-08] MEDS: methylPREDNISolone sod succ/PF 40mg inj. IV SCH (08:01)
[2019-10-08] MEDS: furosemide 40mg/4ml inj IV SCH (08:01)
[2019-10-08] MEDS: lactobacillus rhamnosus 10,000 MMU CELLS/CAPSULE PO SCH ×2 (08:02→20:19)
[2019-10-08] MEDS: heparin, porcine 5000 units/ml vial SQ SCH ×2 (08:02→19:01)
[2019-10-08] MEDS: multivitamins, therapeutics tablet PO SCH (08:02)
[2019-10-08] MEDS: carVEDilol 12.5mg tablet PO SCH ×2 (08:03→20:20)
[2019-10-08] MEDS: clopidogrel 75mg tablet PO SCH (08:03)
[2019-10-08] MEDS: amLODIPine 5mg tablet PO SCH (08:03)
[2019-10-08] MEDS: levoTHYROXINE 100mcg tablet PO SCH (08:03)
[2019-10-08] MEDS: aspirin 81mg tablet.DR PO SCH (08:03)
[2019-10-08] MEDS: ESCITALOPRAM OXALATE 5 MG TABLET PO SCH (08:04)
[2019-10-08] MEDS: levoFLOXACIN-Levaquin 250mg/D5 50 ML IV SCH (08:09)
[2019-10-08] MEDS: insulin Lispro (HumaLOG) vial - multi-dose SQ SCH ×3 (08:15→18:33)
[2019-10-08] MEDS: traMADol 50MG tablet PO PRN (08:19)
[2019-10-08] MEDS: sodium ferric gluc complex inj 125 MG in normal saline 100ml IV soln 100 ML IV SCH (10:59)
[2019-10-08 11:00] VITALS: BP 139/74
--- NOTE | 2019-10-08 11:22 | NUR ---
Paged Dr. Henderson regarding thoracentesis. PAGER ID: [phone] MESSAGE: re [phone] Verito Hermosillo: Need clarification on discharge for patient. Do you want the thora done prior? Thanks, Kavitha x [phone]
[2019-10-08 15:00] VITALS: BP 145/85
[2019-10-08 18:00] VITALS: BP 123/71
--- NOTE | 2019-10-08 18:00 | NUR ---
Patient in room PCU 3023. I have received report from Kavitha DIALLO and had the opportunity to ask questions and assume patient care.
--- NOTE | 2019-10-08 18:31 | NUR ---
Problems reprioritized. Patient report given, questions answered & plan of care reviewed with YOEL Jay.
--- NOTE | 2019-10-08 18:45 | NUR ---
Patient in room PCU 3023. I have received report from Kavitha DIALLO and had the opportunity to ask questions and assume patient care.
[2019-10-08] MEDS: famotidine 20mg tablet PO SCH (20:19)
[2019-10-08] MEDS: atorvastatin 20mg tablet PO SCH (20:19)
[2019-10-08] MEDS: ALPRAZolam 0.25mg tablet PO SCH (20:20)
[2019-10-08] MEDS: insulin glargine (Lantus) pen - multi-dose SQ SCH (20:33)
[2019-10-08 22:00] VITALS: BP 142/78
[2019-10-09 02:00] VITALS: BP 141/75
--- NOTE | 2019-10-09 05:14 | NUR ---
[place] documentation: I have reviewed and agree with all interventions, assessments performed and documented by Teresita DIALLO. [place] Medication Administration: For this medication-pass time frame, all medication were reviewed, dispensed, administered and documented per hospital policy by Teresita DIALLO.
[2019-10-09 05:38] LABS: BASOPHILS % (AUTO) 0.1 % (0-1); EOSINOPHILS % (AUTO) 0 % (0-6); HEMATOCRIT 24.3 % (35.0-45.0); HEMOGLOBIN 8.1 g/dl (12.0-16.0); LYMPHOCYTES # (AUTO) 1.9 X10'3 (1.1-4.8); LYMPHOCYTES % (AUTO) 17.4 % (21-51); MEAN CORPUSCULAR HEMOGLOBIN 27.9 PG (27.0-31.0); MEAN CORPUSCULAR HGB CONC 33.3 g/dL (33.0-36.5); MEAN CORPUSCULAR VOLUME 83.8 FL (78-98); MEAN PLATELET VOLUME 8.2 FL (7.4-10.4); MONOCYTES % (AUTO) 9.2 % (2-12); NEUTROPHILS % (AUTO) 73.3 % (42-75); PLATELET COUNT 361 X10'3 (140-440); RED CELL DISTRIBUTION WIDTH 17.4 % (11.5-14.5)
--- NOTE | 2019-10-09 06:15 | NUR ---
Problems reprioritized. Patient report given, questions answered & plan of care reviewed with Kavitha DIALLO.
--- NOTE | 2019-10-09 06:15 | NUR ---
Patient in room PCU 3023. I have received report from Misty DIALLO and had the opportunity to ask questions and assume patient care.
[2019-10-09 06:21] LABS: ANION GAP 11 (8-16); BLOOD UREA NITROGEN 74 MG/DL (7-18); BUN/CREATININE RATIO 26.1 (6.6-38.0); CALCIUM 8.1 MG/DL (8.5-10.1); CHLORIDE 105 MMOL/L (99-107); CREATININE 2.84 MG/DL (0.40-0.90); GLUCOSE 98 MG/DL (70-104); MAGNESIUM 2.2 MG/DL (1.5-2.4); POTASSIUM 3.7 MMOL/L (3.5-5.1); SODIUM 138 MMOL/L (135-145); TOTAL CARBON DIOXIDE 22.1 MMOL/L (24-32); eGFR 17 ML/MIN
[2019-10-09] MEDS: K and/or MAG REPLACEMENT MC SCH (06:58)
[2019-10-09 07:00] VITALS: BP 150/82
[2019-10-09] MEDS: ipratropium/albuterol 3ml nebule NEB SCH ×2 (07:04→14:53)
[2019-10-09] MEDS: levoFLOXACIN-Levaquin 250mg/D5 50 ML IV SCH (07:46)
[2019-10-09] MEDS: furosemide 40mg/4ml inj IV SCH (07:47)
[2019-10-09] MEDS: docusate sod 100mg capsule PO SCH (07:47)
[2019-10-09] MEDS: carVEDilol 12.5mg tablet PO SCH (07:48)
[2019-10-09] MEDS: levoTHYROXINE 100mcg tablet PO SCH (07:48)
[2019-10-09] MEDS: lactobacillus rhamnosus 10,000 MMU CELLS/CAPSULE PO SCH (07:48)
[2019-10-09] MEDS: multivitamins, therapeutics tablet PO SCH (07:49)
[2019-10-09] MEDS: amLODIPine 5mg tablet PO SCH (07:49)
[2019-10-09] MEDS: acetaminophen 325mg tablet PO PRN (07:50)
[2019-10-09] MEDS: heparin, porcine 5000 units/ml vial SQ SCH (08:00)
[2019-10-09] MEDS ORDERED: predniSONE 20 mg tablet PO SCH (08:00)
[2019-10-09] MEDS: clopidogrel 75mg tablet PO SCH (08:00)
[2019-10-09] MEDS: aspirin 81mg tablet.DR PO SCH (08:00)
[2019-10-09] MEDS: ESCITALOPRAM OXALATE 5 MG TABLET PO SCH (08:08)
[2019-10-09] MEDS: insulin Lispro (HumaLOG) vial - multi-dose SQ SCH ×2 (08:11→13:23)
[2019-10-09] MEDS: sodium ferric gluc complex inj 125 MG in normal saline 100ml IV soln 100 ML IV SCH (09:45)
[2019-10-09] MEDS ORDERED: gelatin sponge, absorbable (Gelfoam 12-7MM) sponge TP ONE (09:58)
[2019-10-09 10:31] VITALS: BP 124/73
[2019-10-09 10:45] VITALS: BP 138/72
[2019-10-09 11:00] VITALS: BP 99/63
--- NOTE | 2019-10-09 11:09 | NUR ---
patient refused svn tx due to procedure to sore Addendum: 10/09/19 at 1111 by Grace Perdomo RT Amended: Links added.
--- NOTE | 2019-10-09 11:24 | NUR ---
Page sent to Dr. Henderson to notify of thoracentesis completion. PAGER ID: [phone] MESSAGE: re [phone] Verito Hermosillo: FYI-Pt had thora complete 860mls taken off. Thanks, Kavitha x [phone]
[2019-10-09 11:34] LABS: LDH,BODY FLUID 60 U/L
--- NOTE | 2019-10-09 11:38 | NUR ---
Patient stated she felt like her blood sugar was low. Blood glucose 72. Dema juice and crackers given. Patient stated she feels better. Will continue to monitor.
[2019-10-09 11:50] LABS: TOTAL PROTEIN,BODY FLUID < 2.0 G/DL
--- NOTE | 2019-10-09 14:00 | NUR ---
Patient ambulated without difficulty 300 feet.
[2019-10-09 14:03] LABS: EOSINOPHILS,BODY FLUID 1 %; LYMPHOCYTES,BODY FLUID 33 %; MONOCYTES,BODY FLUID 62 %; NEUTROPHILS,BODY FLUID 4 %
[2019-10-09] MEDS ORDERED: CEFD300C3 PO (14:03)
[2019-10-09] MEDS ORDERED: IPRA3AMP9 NEB (14:03)
[2019-10-09] MEDS ORDERED: BUDE10.22 INH (14:03)
[2019-10-09 14:26] LABS: BF RBC COUNT 69 /CU MM; BF WBC COUNT 86 /CU MM (0-1000); BFAPPEAR CLEAR; BFCOLOR YELLOW; BFVOLUME 59 ML
[2019-10-09 14:27] LABS: BF MESOTHELIAL CELLS FEW; OTHER CELLS,BODY FLUID MACROPHAGES
--- NOTE | 2019-10-09 14:52 | NUR ---
Paged Dr. Henderson regarding request for cytology of plural fluid. PAGER ID: [phone] MESSAGE: re [phone] Per pathologist, a cytology of the pleural fluid is recommended. Please advise. Thanks, Kavitha [phone]
[2019-10-09 15:00] VITALS: BP 147/84
--- NOTE | 2019-10-09 15:12 | NUR ---
New telephone order from Dr. Henderson to add on cytology of pleural fluid. Lab notified.
--- NOTE | 2019-10-09 16:30 | NUR ---
Paged Dr. Henderson regarding new orders for ABX PAGER ID: [phone] MESSAGE: Luz Marina DIALLO [id number]. [id number] Verito Hermosillo. Orders to d/c pt but new orders to for ABX, would you like to edit d/c instructions to include ABX ? Thanks!
--- NOTE | 2019-10-09 16:57 | NUR ---
Sent page to Dr. Henderson regarding d/c abx PAGER ID: [phone] MESSAGE: Luz Marina DIALLO [id number], Rodney Hermosillo [id number], waiting to discharge, new abx ordered but no orders to go home on abx? Please advise, thanks!
--- NOTE | 2019-10-09 17:12 | NUR ---
Paged Dr. Henderson PAGER ID: [phone] MESSAGE: Dr. Henderson pt Jonathan Hermosillo in [id number], do you want to discharge with new abx orders? Thanks! Luz Marina DIALLO [phone]
--- NOTE | 2019-10-09 18:12 | NUR ---
Pt stable to dc per MD, made f/u apt w/ Dr. Aparicio for pt, new prescriptions called into [facility] pharmacy in [place], discharge instructions reviewed w/ patient and sister, educated on DM survival skills/COPD/CKD/ARF/CHF, all concerns and questions answered, PIV removed, tele box d/c, taken off the unit at 1812 in wheelchair w/ RN and sister.
[2019-10-10] MEDS ORDERED: levoFLOXACIN 250mg tablet PO SCH (11:00)
== END 2019-10-09 18:10 | disposition home health service (06) | DRG 291 ==
LOC: ER 18:00 → ED HOLD 10-05 00:40 → PCU 3S 10-05 03:20
PROVIDERS: ADMIT Internal Medicine; ATTEND Hospitalist
PROC: 0W993ZZ Drainage of Right Pleural Cavity, Percutaneous Approach (ICD-10-PCS; principal; 2019-10-09)
DX: I13.0 Hypertensive heart and chronic kidney disease with heart failure and stage 1 through stage 4 chronic kidney disease, or unspecified chronic kidney disease (principal); I50.23 Acute on chronic systolic (congestive) heart failure; J96.20 Acute and chronic respiratory failure, unspecified whether with hypoxia or hypercapnia; J44.1 Chronic obstructive pulmonary disease with (acute) exacerbation; N17.9 Acute kidney failure, unspecified; J91.8 Pleural effusion in other conditions classified elsewhere; D63.8 Anemia in other chronic diseases classified elsewhere; E03.9 Hypothyroidism, unspecified; E11.22 Type 2 diabetes mellitus with diabetic chronic kidney disease; E11.42 Type 2 diabetes mellitus with diabetic polyneuropathy; E78.5 Hyperlipidemia, unspecified; F32.9 Major depressive disorder, single episode, unspecified; I25.10 Atherosclerotic heart disease of native coronary artery without angina pectoris; M81.0 Age-related osteoporosis without current pathological fracture; N18.9 Chronic kidney disease, unspecified; Z80.1 Family history of malignant neoplasm of trachea, bronchus and lung; Z83.3 Family history of diabetes mellitus; Z87.891 Personal history of nicotine dependence; Z95.1 Presence of aortocoronary bypass graft; Z88.5 Allergy status to narcotic agent; Z90.49 Acquired absence of other specified parts of digestive tract; Z79.899 Other long term (current) drug therapy
CPT/HCPCS: 32555; 36415; 71045; 71046; 80048; 80053; 82728; 82948; 83036; 83540; 83550; 83605; 83615; 83735; 83880; 84157; 84443; 84466; 84484; 85025; 87040; 87070; 87075; 87081; 88108; 89051; 93005; 93306; 94640; 94760; 96374; 99285; C9113; G0378; J0360; J1644; J1815; J1940; J1956; J2916; J2920; J2930; J7512